=== PATIENT | female | born 1975 | race African-American/Black ===

== ENCOUNTER 2019-07-31 05:08 | Inpatient (IN) ==
[2019-07-18 10:13] LABS: Basophils % 0.4 % (0.0-0.8); Eosinophils # 0.3 10*3/uL (0.0-0.87); Eosinophils % 5.3 % (0.00-10.9); Hemoglobin 8.6 GM/DL (12.0-16.0); Immature Granulocytes % 0.2 %; Immature Granulocytes Absolute 0.01 #; Lymphocytes % 40.3 % (21.3-54.2); Mean Corpuscular HGB Conc 30.7 GM/DL (32-36); Mean Corpuscular Volume 82.1 FL (87-102); Mean Platelet Volume 8.5 FL (9.6-12.0); Monocytes % 8.4 % (1.7-12.7); Neutrophils % 45.4 % (38.7-73.9); Platelet Count 518 T/CUMM (130-400); Red Blood Count 3.41 MC/CUMM (3.8-5.5); Red Cell Distribution Width 15.1 % (9.3-17.3); White Blood Count 4.9 T/CUMM (4-12)
[2019-07-18 10:21] LABS: Apearance,Urine CLEAR (Clear); Bacteria,Urine Moderate /HPF (Few); Bilirubin,Urine Negative (Negative); Blood, Urine Moderate mg/dL (Negative); Glucose,Urine (UA) Negative (Negative); Ketones,Urine Negative (Negative); Nitrite,Urine Negative (Negative); Protein,Urine Negative; RBC,Urine 1 /HPF (0-4); Squamous Epithelial Cell,Urine Occasional /HPF (0-10); Urine Color Straw (Yellow); Urine Specific Gravity 1.005 (1.001-1.035); Urine Urobilinogen < 2.0 EU/DL (0.2-1.0); WBC,Urine 9 /HPF (0-6)
[2019-07-18 10:23] LABS: INR 0.9; PT Patient Result 9.8 SECS (9.6-12.2); Partial Thromboplastin Time 25.1 SECS (20.8-36.0)
[2019-07-18 10:41] LABS: Calcium 8.8 MG/DL (8.5-10.1)
[2019-07-31] MEDS ORDERED: ceFAZolin 1,000 MG in SYRINGE 1 EACH IV ONE (06:00)
[2019-07-31] MEDS ORDERED: MIDAZOLAM 2 MG/2 ML VIAL ONE (06:13)
[2019-07-31] MEDS ORDERED: LIDOCAINE 2% 5 ML VIAL ONE ×2 (06:13→09:10)
[2019-07-31] MEDS ORDERED: BUPIVACAINE MPF 0.5% /EPI 30 ML VIAL ONE (06:13)
[2019-07-31] MEDS ORDERED: fentaNYL 100 MCG/2 ML VIAL ONE ×2 (06:13→09:10)
[2019-07-31] MEDS ORDERED: DEXAMETHASONE 4 MG/1 ML VIAL ONE ×2 (06:23→09:10)
[2019-07-31] MEDS ORDERED: LEVOFLOXACIN INJ 150 ML IV ONE (06:24)
[2019-07-31] MEDS ORDERED: CLINDAMYCIN INJ 50 ML IV ONE (06:24)
[2019-07-31] MEDS ORDERED: LACTATED RINGERS 1,000 ML IV SCH ×2 (07:00→09:30)
[2019-07-31 08:56] LABS: Apearance,Urine CLEAR (Clear); Bacteria,Urine Occasional /HPF (Few); Bilirubin,Urine Negative (Negative); Blood, Urine Negative (Negative); Glucose,Urine (UA) Negative (Negative); Ketones,Urine Negative (Negative); Mucus,Urine Occasional /LPF (Occasional); Nitrite,Urine Negative (Negative); Protein,Urine Negative; RBC,Urine 3 /HPF (0-4); Squamous Epithelial Cell,Urine Occasional /HPF (0-10); Urine Color Yellow (Yellow); Urine Specific Gravity 1.011 (1.001-1.035); Urine Urobilinogen < 2.0 EU/DL (0.2-1.0); WBC,Urine 6 /HPF (0-6)
[2019-07-31] MEDS ORDERED: ONDANSETRON 4 MG/2 ML VIAL IV PRN ×2 (09:03→09:23)
[2019-07-31] MEDS ORDERED: ACETAMINOPHEN 325 MG TABLET PO PRN (09:03)
[2019-07-31] MEDS ORDERED: MAGNESIUM HYDROXIDE SUSP 30 ML UDCUP PO PRN (09:03)
[2019-07-31] MEDS ORDERED: DOCUSATE SODIUM 100 MG CAPSULE PO PRN (09:03)
[2019-07-31] MEDS ORDERED: BISACODYL 10 MG SUPP RECTAL PRN (09:03)
[2019-07-31] MEDS ORDERED: BENZOCAINE/MENTHOL LOZENGE 18/BOX PO PRN (09:03)
[2019-07-31] MEDS ORDERED: propofoL 200 MG/20 ML VIAL IV ONE (09:10)
[2019-07-31] MEDS ORDERED: ONDANSETRON 4 MG/2 ML VIAL ONE (09:10)
[2019-07-31] MEDS ORDERED: GLYCOPYRROLATE 0.4 MG/2 ML VIAL ONE (09:10)
[2019-07-31] MEDS ORDERED: SEVOFLURANE 1 UNIT/15 MINUTE INH ONE (09:10)
[2019-07-31] MEDS ORDERED: ROCURONIUM 100 MG/10 ML VIAL IV ONE (09:11)
[2019-07-31] MEDS ORDERED: PHENYLEPHRINE 1 MG/10 ML SYRINGE IV ONE (09:11)
[2019-07-31] MEDS ORDERED: SUCCINYLCHOLINE 200 MG/10 ML VIAL ONE (09:11)
[2019-07-31] MEDS ORDERED: LACTATED RINGERS 1,000 ML IV ONE (09:11)
[2019-07-31] MEDS ORDERED: ACETAMINOPHEN 1,000 MG/100 ML VIAL IV ONE (09:11)
[2019-07-31] MEDS ORDERED: NEOSTIGMINE 10 MG/10 ML VIAL ONE (09:11)
[2019-07-31] MEDS ORDERED: HYDROmorphone 2 MG/1 ML VIAL IV PRN (09:23)
[2019-07-31] MEDS ORDERED: PROMETHAZINE 25 MG/1 ML VIAL ONE (09:58)
[2019-07-31] MEDS ORDERED: PROMETHAZINE INJ 6.25 MG in SODIUM CHLORIDE 0.9% 50 ML IV ONE (09:58)
[2019-07-31] MEDS ORDERED: METOCLOPRAMIDE 10 MG/2 ML VIAL ONE (09:59)
[2019-07-31] MEDS ORDERED: METOCLOPRAMIDE 10 MG/2 ML VIAL IV ONE (09:59)
[2019-07-31] MEDS ORDERED: LACTATED RINGERS 500 ML IV ONE (10:00)
[2019-07-31] MEDS: oxyCODONE/ACETAMINOPHEN 5-325 MG TABLET PO PRN (15:55)
[2019-07-31] MEDS: CLINDAMYCIN INJ 900 MG in PREMIX 1 EACH IV SCH (16:00)
[2019-08-01] MEDS: IBUPROFEN 800 MG TABLET PO PRN ×2 (00:09→20:22)
[2019-08-01] MEDS ORDERED: CLINDAMYCIN INJ 900 MG in PREMIX 1 EACH IV SCH (02:00)
[2019-08-01] MEDS: CLINDAMYCIN INJ 900 MG in PREMIX 1 EACH IV SCH (02:49)
[2019-08-01 05:58] LABS: Basophils % 0.1 % (0.0-0.8); Hematocrit 23.4 VOL% (35.7-47.0); Hemoglobin 7.7 GM/DL (12.0-16.0); Immature Granulocytes % 0.4 %; Immature Granulocytes Absolute 0.05 #; Lymphocytes # 1.8 10*3/uL (1.4-4.0); Mean Corpuscular HGB Conc 32.9 GM/DL (32-36); Mean Corpuscular Volume 79.6 FL (87-102); Monocytes % 7.3 % (1.7-12.7); Neutrophils % 77.2 % (38.7-73.9); Platelet Count 428 T/CUMM (130-400); Red Blood Count 2.94 MC/CUMM (3.8-5.5); Red Cell Distribution Width 15.3 % (9.3-17.3)
[2019-08-01] MEDS: oxyCODONE/ACETAMINOPHEN 5-325 MG TABLET PO PRN (20:22)
[2019-08-02 08:05] VITALS: BP 112/48
== END 2019-08-02 09:15 | disposition home or self-care (01) | DRG 743 ==
LOC: N.SDS 05:08 → N.SDSINP 05:09 → EDSTATUS 07:30 → N.SDSINP 09:03 → N.OB 10:38
PROVIDERS: ADMIT Specialist; ATTEND Specialist